=== PATIENT | male | born 1970 | race Two or more races ===

== ENCOUNTER 2023-08-16 10:13 | Emergency (ER) | payer OTHER ==
[~2023-08-16] VITALS: Ht 188 cm; Wt 99.8 kg
[2023-08-16] MEDS ORDERED: AMLODIPINE (10:29)
[2023-08-16] MEDS ORDERED: AVAPRO75 MG (10:29)
[2023-08-16 11:24] LABS: HEMATOCRIT 45.1 % (39.0-48.0); HEMOGLOBIN 15.7 g/dL (13-16.00); MEAN CELL VOLUME 91.6 fL (80.0-100.00); MEAN CORPUSCULAR HEMOGLOBIN 31.9 pg (27.00-32.0); MEAN CORPUSCULAR HGB CONC 34.8 g/dl (32.0-36.0); PLATELET COUNT 195 K/uL (150-450); RED BLOOD COUNT 4.92 M/uL (4.00-6.00); RED CELL DISTRIBUTION WIDTH 13.1 % (11.5-14.5)
[2023-08-16 11:40] LABS: CREATININE SERUM 1.16 mg/dL (0.70-1.30); GFR 65.37; POTASSIUM 3.84 mEq/L (3.5-5.1)
[2023-08-16 12:34] LABS: PH,URINE 5.5 (5.0-8.0); URINE APPEARANCE Clear; URINE BILIRRUBIN Negative (NEGATIVE); URINE BLOOD Negative; URINE COLOR Yellow; URINE GLUCOSE Negative (NEGATIVE); URINE LEUKOCYTE Negative; URINE NITRATE Negative; URINE PROTEIN Negative (NEGATIVE); URINE UROBILINOGEN 0.2 E.U./dl
[2023-08-16 12:40] LABS: URINE BACTERIA 6.2 uL (0.0-1933)
[2023-08-16 12:43] LABS: URINE EPITHELIAL CELLS 0.7 uL (0.0-38.8); URINE RBC 0.8 uL (0.0-20.8); URINE WBC 0.6 uL (0.0-23.2)
== END 2023-08-16 15:56 | disposition home or self-care (01) ==
LOC: ER 10:14
PROVIDERS: Emergency Medicine
DX: R10.9 Unspecified abdominal pain (principal); Z87.442 Personal history of urinary calculi; K76.0 Fatty (change of) liver, not elsewhere classified
CPT/HCPCS: 36415; 74177; 96365; 96366; 99284; J7030; Q9965